=== PATIENT | male | born 1950 | race Caucasian/White ===

== ENCOUNTER 2018-05-04 08:27 | Emergency (ER) | payer BC ==
[~2018-05-04] VITALS: Ht 175.2 cm; Wt 93.4 kg
--- NOTE | ~2018-05-04 | EKG ---
[place], [place] ELECTROCARDIOGRAM REPORT NAME: BRIAN THOMASON SR UNIT #: [id number] ROOM: DOCTOR: EPIPHANY DRAFT REPORT BIRTHDATE: [birth year] [facility] Test Date: 2018-05-04 Test Time: 08:58:36 Pat Name: BRIAN THOMASON Department: Room: Gender: [employer] Machine: AMISH : 1950 Requested By: MARK PADILLA Order Number: [id number] Reading MD: Daniel Carlisle MD Measurements Intervals [place] Rate: 82 P: NE: QRS: 76 QRSD: 95 T: 42 QT: 443 QTc: 518 Interpretive Statements Atrial fibrillation Probable left ventricular hypertrophy Prolonged QT interval Electronically Signed On 05-07-2018 8:16:56 PDT by Daniel Carlisle MD CM:EKGRPT:ELECTROCARDIOGRAM REPORT [id number] MARK NUNN DRAFT REPORT MARK PADILLA M.D.
[2018-05-04] MEDS ORDERED: METOPROLOL SUC100 M1 PO (08:34)
[2018-05-04] MEDS ORDERED: DIOVAN320 MG PO (08:35)
[2018-05-04] MEDS ORDERED: WARFARIN SOD5 MG PO (08:35)
[2018-05-04] MEDS ORDERED: AMLODIPINE BESY10 MG PO (08:35)
[2018-05-04] MEDS ORDERED: GLUCOPHAGE1000 MG PO (08:35)
[2018-05-04 08:57] LABS: BASO # 0.1 10*3/uL (0.0-0.1); BASO % 0.4 % (0.0-1.0); EOS % 0.2 % (1.0-4.0); HEMATOCRIT 47.6 % (42.0-52.0); HEMOGLOBIN 15.9 g/dl (14.0-18.0); LYMPH # 0.8 10*3/uL (1.3-4.4); LYMPH % 7.1 % (27.0-41.0); MEAN CELL VOLUME 100.2 fl (80.0-94.0); MEAN CORPUSCULAR HGB 33.5 pg (27.0-31.0); MEAN CORPUSCULAR HGB CONC 33.4 g/dl (33.0-37.0); MEAN PLATELET VOLUME 10.8 fl (9.6-12.3); MONO # 0.6 10*3/uL (0.1-1.0); MONO % 4.9 % (3.0-9.0); NEUT # 10.2 10*3/uL (2.3-7.9); PLATELET COUNT AUTOMATED 134 10*3/uL (130-400); RED BLOOD COUNT 4.75 10*6/uL (4.50-5.90); RED CELL DISTRI WIDTH 13.3 % (0-14.5); WHITE BLOOD COUNT 11.8 10*3/uL (4.8-10.8)
[2018-05-04 09:11] LABS: ACT PARTIAL THROMBO TIME 36.7 SECONDS (20.8-31.5); INTERNATIONAL NORM RATIO 4.1 (2.0-3.5)
[2018-05-04 09:13] LABS: ALBUMIN 3.5 gm/dl (3.1-4.5); ALKALINE PHOSPHATASE 81 U/L (45-117); BUN 22 mg/dl (7-24); CHLORIDE 107 mmol/L (98-107); CKMB 2.5 ng/ml (0.5-3.6); CPK 114 U/L (39-308); CREATININE 1.08 mg/dL (0.70-1.30); POTASSIUM 4.1 mmol/L (3.5-5.1); SGOT/AST 29 IU/L (3-35); SGPT/ALT 22 U/L (12-78); SODIUM 140 mmol/L (136-145); TOTAL PROTEIN 7.7 gm/dL (6.4-8.2)
[2018-05-04 09:14] LABS: TROPONIN I < 0.015 ng/ml (<0.045)
== END 2018-05-04 09:10 | disposition short-term general hospital (02) ==
LOC: ED 08:27
PROVIDERS: Emergency Medicine
DX: I63.8 Other cerebral infarction (principal); R53.1 Weakness; Z79.01 Long term (current) use of anticoagulants; Z79.899 Other long term (current) drug therapy